=== PATIENT | male | born 1980 | race Caucasian/White ===

== ENCOUNTER 2017-05-18 18:52 | Emergency (ER) | payer SELFPAY ==
[~2017-05-18] VITALS: Ht 172.7 cm; Wt 71.6 kg
[2017-05-18 19:06] VITALS: TEMP 36.9; Ht 172.7 cm; Wt 71.6 kg
[2017-05-18] MEDS ORDERED: LIDOCAINE HCL 1% 20 ML VIAL ONE (19:14)
[2017-05-18] MEDS ORDERED: XYLOCAINE 1%/SOD BICARB 20 ML VIAL INFIL ONE (19:15)
[2017-05-18 19:54] VITALS: BP 143/100; PULSE 84; O2SAT 96
--- NOTE | 2017-05-19 23:38 | EMERGENCY ROOM VISIT NOTE ---
ED Visit Note First contact with patient: 19:09 Chief Complaint: I have a tick bite on my right hip. History of Present Illness: Mr. Soto is a 37-year-old white male who ambulates into the ED complaining of a tick bite. Patient reports yesterday he noted to ticks embedded on his body. He was able to remove one completely but left a a tick head on his right hip. He reports he attempted multiple techniques to remove it but was unsuccessful. Associated with this he reports he has a mild discomfort in this area. He describes it as an achy sensation. He rates his discomfort 3/10. His pain worsens with palpation. He has not identified any alleviating factors related to the pain. He has not taken any medications for pain prior to arrival at the hospital. Associated with his pain he has noted some redness and swelling in the area of the tick bite. He denies fevers, chills, sweats, other skin eruptions, other skin color changes , shortness of breath, chest pain, abdominal pain, decreased appetite, nausea, vomiting, joint pain/swelling. Review of Systems: As noted above in history of present illness. 8 body systems were reviewed and found to be negative as noted above. Past Medical History: Hypertension. Current Medications: Patient denies. Allergies to Medications: Ibuprofen, penicillin. Social History: Patient is currently employed; he feels safe in his home environment; he admits to tobacco and alcohol use. Tetanus Immunization Status: 2014. Physical Examination: Vital Signs: Date Time Temp Pulse Resp B/P (MAP) Pulse Ox O2 Delivery O2 Flow Rate FiO2 05/18/17 19:54 84 17 143/100 96 05/18/17 19:06 36.9 100 18 163/88 98 Room Air GENERAL: 37-year-old male in mild distress due to pain, nontoxic-appearing, afebrile and hemodynamically stable. NEUROLOGICAL: Awake, alert and oriented to person, place and time. Answering questions appropriately and following commands. Normal gait. Good hand eye coordination. SKIN: Warm, dry and pink. Right Iliac Area: This is the area where the tick was embedded. On further observation the head of the tick is still embedded within the wound. There is some mild erythema and edema around this area. There is no purulent drainage, lymphangitis, or cellulitic appearing skin. ED Course: Patient is assessed as noted above. Patient's medication list was reviewed. Tick Removal: Verbal consent was obtained after the risks and benefits were explained. The skin was prepped with Betadine and a sterile field was set. 1% buffered lidocaine was injected under the area. The piece of tick was grabbed with a mosquito forceps and cut off with a scalpel. The wound area was then explored and no other foreign bodies were noted. The area was re-cleansed with antibacterial soap and water and covered with a sterile bacitracin dressing. There were no complications and patient tolerated the procedure well. Patient was educated about today's findings and instructed on his treatment plan ; he verbalized understanding and agreement with this plan. Clinical Impression: Tick bite. Disposition: Patient discharged home in stable condition; prior to departure he was reassessed and subjectively reported that he was pain and symptom-free. Plan: Comfort measures, wound care and signs of infection were discussed with the patient. Additionally signs of Lyme's disease was discussed with the patient. Patient is encouraged to follow-up with family physician or return to the ED for any signs of infection, signs of Lyme's disease or any new/concerning symptoms.
== END 2017-05-18 19:54 | disposition home or self-care (01) ==
LOC: C.EDB 18:53 → C.EDD 19:54
DX: S70.261A Insect bite (nonvenomous), right hip, initial encounter (principal); W57.XXXA Bitten or stung by nonvenomous insect and other nonvenomous arthropods, initial encounter; I10 Essential (primary) hypertension; F17.200 Nicotine dependence, unspecified, uncomplicated